=== PATIENT | female | born 1990 | race Caucasian/White ===

== ENCOUNTER 2017-04-27 09:36 | Emergency (ER) | payer OTHER ==
--- NOTE | 2017-04-27 12:17 | UC ---
UC General HPI - HPI Summary HPI Summary: 26 y/o female present sto the urgent care c/o 3 episodes of vomiting since this morning. Pt reports she is 16 weeks , LMP: 01/04/2017. She states that she vomited one time last night after eating a cashew yogurt. then this morning 2 times, after she ate dried fruit and nuts. Pt lives in [facility] and has an appt with her OBGYN in [address] Mercedse. She states she feel better now after she ate some granolla bars. Pt denies fever, cough SOB, chest pain, diarrhea. She states her has gone well. No other complains. - History of Current Complaint Chief Complaint: UCGI Stated Complaint: VOMITING/PREG/FOOD POISIONING? Time Seen by Provider: 04/27/17 11:55 Hx Obtained From: Patient Onset/Duration: Sudden Onset, Lasting Hours, Resolved Timing: Intermittent Episodes Lasting: Onset Severity: Mild Current Severity: None Pain Intensity: 0 - Allergy/Home Medications Allergies/Adverse Reactions: Allergies Allergy/AdvReac Type Severity Reaction Status Date / Time No Known Allergies Allergy Verified 04/27/17 10:17 Home Medications: Home Medications Vitamin [Calna] 1 tab PO 04/27/17 [History] PMH/Surg Hx/FS Hx/Imm Hx Previously Healthy: Yes Endocrine History: Other Other Endocrine History: Idiopathic hematuria - Surgical History Surgical History: None - Family History Known Family History: Positive: Hypertension, Diabetes, Other Family History: glomerulonephritis from father side. - Social History Occupation: Unemployed Lives: With Family Alcohol Use: None Substance Use Type: None Smoking Status (MU): Never Smoked Tobacco Review of Systems Constitutional: Negative Skin: Negative Eyes: Negative ENT: Negative Respiratory: Negative Cardiovascular: Negative Gastrointestinal: Vomiting Genitourinary: Negative Motor: Negative Neurovascular: Negative Musculoskeletal: Negative Neurological: Negative Psychological: Negative All Other Systems Reviewed And Are Negative: Yes Physical Exam Triage Information Reviewed: Yes Appearance: Well-Appearing, No Pain Distress, Well-Nourished, Thin - women Vital Signs: Initial Vital Signs Temp 98.2 F 04/27/17 10:13 Pulse 98 04/27/17 10:13 Resp 18 04/27/17 10:13 BP 123/80 04/27/17 10:13 Pulse Ox 100 04/27/17 10:13 Vital Signs Reviewed: Yes Eye Exam: Normal Eyes: Positive: Conjunctiva Clear - PERRLA, EOMI, fundi grossly normal ENT Exam: Normal ENT: Positive: Normal ENT inspection, Hearing grossly normal, Pharynx normal, TMs normal Dental Exam: Normal Neck exam: Normal Neck: Positive: Supple, Nontender, No Lymphadenopathy Respiratory Exam: Normal Respiratory: Positive: Chest non-tender, Lungs clear, Normal breath sounds Cardiovascular Exam: Normal Cardiovascular: Positive: RRR, No Murmur, Pulses Normal, Brisk Capillary Refill Abdominal Exam: Normal Abdomen Description: Positive: Nontender, No Organomegaly, Soft. Negative: CVA Tenderness (R), CVA Tenderness (L) Bowel Sounds: Positive: Present Musculoskeletal Exam: Normal Musculoskeletal: Positive: Strength Intact, ROM Intact, No Edema Neurological Exam: Normal Psychological Exam: Normal Skin Exam: Normal Course/Dx - Course Course Of Treatment: 26 y/o female present sto the urgent care c/o 3 episodes of vomiting since this morning. Pt reports she is 16 weeks , LMP: 01/04/2017. She states that she vomited one time last night after eating a cashew yogurt. then this morning 2 times, after she ate dried fruit and nuts. Pt lives in [facility] and has an appt with her OBGYN in [address] Mercedes. She states she feel better now after she ate some granolla bars. Pt denies fever, cough SOB, chest pain, diarrhea. She states her has gone well. PE exam: WNL. Pt didn't devlop surinder episode of vomiting while at the clinic and fell better after eating. Most likely Hyperemesis gravidarium. Hoever Pt advised to eat small portions, avoid certain foods and smells and to eat cracker every time she feels Nausea. Pt has a F/u appt with OBGYN on 04/30/2017. Pt understood and agreed. Left the clinic ambulating. - Differential Dx - Multi-Symptom Provider Diagnoses: Hyperemesis gravidarium, Discharge - Discharge Plan Condition: Stable Disposition: HOME Patient Education Materials: Hyperemesis Gravidarum (ED) Referrals: Non Staff,Doctor [Primary Care Provider] - [facility] [place] [facility] [Outside] - If Needed Additional Instructions: Please increase flid intake to avoid dehydration, eat light meals, smaller portions, more frequent meals avoid smells and food textures that causes nausea. If symptoms worsen please f/u with your OBGYN at [facility]. Addendum entered and electronically signed by Leslye Kumari PA 18:45:
== END 2017-04-27 12:19 | disposition home or self-care (01) ==
LOC: UCEAST 09:36
DX: O21.0 Mild hyperemesis gravidarum (principal); Z3A.16 16 weeks gestation of pregnancy
CPT/HCPCS: 99201; G0463

== ENCOUNTER 2020-09-21 19:43 | Inpatient (IN) ==
[2020-09-21 21:02] LABS: Urine Benzodiazepine Screen None Detected (None Detect); Urine Cannabinoids Screen None Detected (None Detect); Urine Opiates Screen None Detected (None Detect)
[2020-09-21] MEDS ORDERED: Witch Hazel PAD JAR TOPICAL PRN (23:05)
[2020-09-22 06:27] LABS: ABS Basophils 0.1 10^3/ul (0-0.2); ABS Lymphocytes 1.7 10^3/ul (1.0-4.8); ABS Monocytes 1.2 10^3/ul (0-0.8); ABS Neutrophils 12.2 10^3/ul (1.5-7.7); Eosinophil % 0.2 %; Hematocrit 31 % (35-47); Hemoglobin 10.4 g/dL (12.0-16.0); Lymphocyte % 11.2 %; Mean Corpuscular HGB Conc 34 g/dL (31-36); Mean Corpuscular Hemoglobin 30 pg (27-31); Mean Corpuscular Volume 89 fL (80-97); Platelet Count 160 10^3/uL (150-450); Red Blood Count 3.45 10^6 /uL (3.70-4.87); Red Cell Distribution Width 12 % (10-15); White Blood Count 15.2 10^3/uL (3.5-10.8)
[2020-09-22] MEDS: Lidocaine 2% JELLY 6 ML TOPICAL SCH ×2 (12:40→16:30)
[2020-09-23 09:01] VITALS: BP 111/54
[2020-09-23] MEDS: Lidocaine 2% JELLY 6 ML TOPICAL SCH (10:28)
== END 2020-09-23 13:40 | disposition home or self-care (01) | DRG 807 ==
LOC: MCHOBOUT 19:43 → MCHOB 20:00
PROVIDERS: ADMIT Midwife; ATTEND Midwife

== ENCOUNTER 2024-04-28 00:10 | Inpatient (IN) ==
[2024-04-28] MEDS ORDERED: Lidocaine 1% VIAL 10 MG/ML 30 ML VIAL INJ PRN (06:55)
[2024-04-28] MEDS: Methylergonovine 0.2 mg AMPULE 1 ml AMP ONE (07:39)
[2024-04-28] MEDS: Lactated Ringers 1000 ml BAG 1,000 ML IV SCH (08:10)
[2024-04-28] MEDS: Buffered Lidocaine 1% SYRIN 1 ml INTRADERM ONE ×2 (08:10)
[2024-04-28] MEDS: Lactated Ringers 1000 ml BAG 1,000 ML IV ONE (08:10)
[2024-04-28] MEDS ORDERED: Glycerin ADULT 2.4 gm SUPP PR PRN (08:18)
[2024-04-28] MEDS: Witch Hazel PAD JAR TOPICAL PRN (08:48)
[2024-04-28] MEDS: Dibucaine 1% OINT 28.35 GM TUBE PR PRN (08:48)
[2024-04-28] MEDS: Methylergonovine 0.2 mg AMPULE 1 ml AMP IM ONE (08:49)
[2024-04-28] MEDS: Oxytocin 10 UNITS/ML 1 ML VIAL IM ONE (08:49)
[2024-04-28] MEDS: Oxytocin 10 UNITS/ML 1 ML VIAL ONE (08:49)
[2024-04-28 08:57] LABS: Urine Benzodiazepine Screen None Detected (None Detect); Urine Cannabinoids Screen None Detected (None Detect); Urine Opiates Screen None Detected (None Detect)
[2024-04-28] MEDS: Oxytocin in LR 20,000 MILLI.UNIT/1,000 ML BAG IV SCH (13:05)
[2024-04-28 13:29] LABS: ABS Lymphocytes 1.1 10^3/uL (1.0-4.8); ABS Monocytes 1.1 10^3/uL (0.0-0.9); ABS Neutrophils 19.5 10^3/uL (1.5-7.6); ABS Nucleated RBC 0.01 10^3/ul; Hematocrit 33.8 % (35-45); Hemoglobin 11.4 g/dL (11.5-14.3); Lymphocyte % 5.1 %; Mean Corpuscular Hemoglobin 31.1 pg (27-33); Mean Corpuscular Hgb Conc 33.7 g/dL (31-36); Mean Corpuscular Volume 92.1 fL (80-97); Mean Platelet Volume 9.8 fL (7.5-11.2); Platelet Count 192 10^3/uL (150-450); Red Blood Count 3.67 10^6/uL (3.63-4.92); Red Cell Distribution Width 12.7 % (12-17); White Blood Count 21.8 10^3/uL (3.8-11.8)
[2024-04-29 06:53] LABS: ABS Basophils 0.1 10^3/uL (0.0-0.1); ABS Eosinophils 0.1 10^3/uL (0.0-0.5); ABS Lymphocytes 2.1 10^3/uL (1.0-4.8); ABS Monocytes 0.7 10^3/uL (0.0-0.9); ABS Neutrophils 8.4 10^3/uL (1.5-7.6); Eosinophil % 0.7 %; Hematocrit 27.4 % (35-45); Hemoglobin 9.3 g/dL (11.5-14.3); Lymphocyte % 18.6 %; Mean Corpuscular Hemoglobin 31.4 pg (27-33); Mean Corpuscular Hgb Conc 33.8 g/dL (31-36); Mean Platelet Volume 9.1 fL (7.5-11.2); Platelet Count 141 10^3/uL (150-450); Red Blood Count 2.95 10^6/uL (3.63-4.92); Red Cell Distribution Width 12.8 % (12-17); White Blood Count 11.4 10^3/uL (3.8-11.8)
[2024-04-29 14:20] VITALS: BP 109/56
== END 2024-04-29 15:03 | disposition home or self-care (01) | DRG 807 ==
LOC: MCHOBOUT 00:10 → MCHOB 05:36
PROVIDERS: ADMIT Advanced Practice Midwife; ATTEND Advanced Practice Midwife